=== PATIENT | male | born 2000 | race Caucasian/White ===

== ENCOUNTER → 2019-03-15 11:36 | Emergency (ER) | payer BC ==
[2019-03-15 11:43] VITALS: BP 142/94
--- NOTE | 2019-03-15 13:24 | ED ---
Skin Complaint - HPI Summary HPI Summary: Patient is a 18-year-old male presenting to the ED with acute onset right sided calf pain which occurred yesterday. He states he felt as though it was a spider bite, but did not notice anything. Today he developed a 2 cm in diameter ecchymotic area to the right calf without surrounding erythema, warmth or swelling. She endorses swelling, but this is not noted on physical exam. He denies any CP or SOB. He has never had anything like this before. He denies any recent rashes or tick bites. He denies blood thinners and takes no medications. He denies any recent travel and denies smoking history. - History of Current Complaint Chief Complaint: EDExtremityLower Time Seen by Provider: 03/15/19 11:52 Stated Complaint: SWELLING/REDNESS ON RIGHT LEG PER PT Hx Obtained From: Patient Onset/Duration: Started Hours Ago Skin Exposure Onset/Duration: Hours Ago Timing: Constant Onset Severity: Moderate Current Severity: Mild Pain Intensity: 7 Pain Scale Used: 0-10 Numeric Skin Location: Discrete - Right posterior calf Character: Swelling, Pain Aggravating Symptom(s): Touch, Other: - Dorsi flexion Alleviating Symptom(s): Nothing Associated Signs & Symptoms: Negative Related History: Insect Bite/Sting - Possible insect bite - Allergy/Home Medications Allergies/Adverse Reactions: Allergies Allergy/AdvReac Type Severity Reaction Status Date / Time No Known Allergies Allergy Verified 03/15/19 11:43 Home Medications: Home Medications NK [No Home Medications Reported] 03/15/19 [History Confirmed 03/15/19] PMH/Surg Hx/FS Hx/Imm Hx Previously Healthy: Yes Endocrine/Hematology History: Denies: Hx Diabetes Cardiovascular History: Denies: Hx Hypertension, Hx Pacemaker/ICD History: Denies: Hx Renal Disease Sensory History: Denies: Hx Hearing Aid Psychiatric History: Denies: Hx Panic Disorder - Immunization History Hx Pertussis Vaccination: No Immunizations Up to Date: Yes Infectious Disease History: No Infectious Disease History: Denies: Traveled Outside the [place] in Last 30 Days - Social History Occupation: Unemployed, Student Lives: Dormitory/Roommates Alcohol Use: Occasionally Hx Substance Use: No Substance Use Type: Reports: None Hx Tobacco Use: No Smoking Status (MU): Never Smoked Tobacco Review of Systems Constitutional: Negative Negative: Fever, Fatigue, Skin Diaphoresis Negative: Palpitations, Chest Pain Negative: Shortness Of Breath, Cough Genitourinary: Negative Positive: no symptoms reported, see HPI Positive: Myalgia - right calf pain Positive: Bruising - approximate 2 cm in diameter area of ecchymosis to the mid right calf All Other Systems Reviewed And Are Negative: Yes Physical Exam Triage Information Reviewed: Yes Vital Signs On Initial Exam: Initial Vitals Temp Pulse Resp BP Pulse Ox 97.4 F 83 16 142/94 98 03/15/19 11:40 03/15/19 11:40 03/15/19 11:40 03/15/19 11:40 03/15/19 11:40 Vital Signs Reviewed: Yes Appearance: Positive: Well-Appearing Skin: Positive: Warm, Skin Color Reflects Adequate Perfusion, Other - Ecchymosis measuring 2 cm to the right calf Head/Face: Positive: Normal Head/Face Inspection Eyes: Positive: Normal, KEVIN Neck: Positive: Supple, No Lymphadenopathy Respiratory/Lung Sounds: Positive: Clear to Auscultation, Breath Sounds Present Cardiovascular: Positive: RRR, Pulses are Symmetrical in both Upper and Lower Extremities Musculoskeletal: Positive: Normal, Strength/ROM Intact, Darshan Sign Right, Other - No edema noted. Negative: Edema Left, Edema Right Neurological: Positive: Speech Normal Psychiatric: Positive: Normal, Affect/Mood Appropriate Diagnostics - Vital Signs Vital Signs Temp Pulse Resp BP Pulse Ox 03/15/19 11:40 97.4 F 83 16 142/94 98 - Laboratory Lab Statement: Any lab studies that have been ordered have been reviewed, and results considered in the medical decision making process. Course/Dx - Course Course Of Treatment: This patient endorses right sided calf swelling which developed since yesterday. He states he had a sharp pain to the right posterior calf and immediately following the area became slightly ecchymotic and currently there is a approximate 2 cm ecchymotic area to the right calf without surrounding erythema, warmth, site of injection, drainage. The area appears to be a bruise. He denies trauma. Patient endorses pain worse with dorsiflexion, better with plantar flexion. He endorses swelling to the calf, however this is not noted on exam. DVT ultrasound obtained which is negative. Discussed with patient this may be a insect bite versus other etiology unknown. He will use heat to the area and ibuprofen. He is okay with this plan and discharged. He is given CD of US upon request. - Diagnoses Provider Diagnoses: Ecchymosis, Right calf pain Discharge - Sign-Out/Discharge Documenting (check all that apply): Patient Departure Patient Received Moderate/Deep Sedation with Procedure: No - Discharge Plan Condition: Stable Disposition: HOME Referrals: Robert Andrew DO [Primary Care Provider] - Additional Instructions: Ibuprofen 600mg three times daily as needed Moist heat to the area - Billing Disposition and Condition Condition: STABLE Disposition: Home Images - Images Full Body (No Head): 1 - 2 cm ecchymotic area resembling a bruise. No erythema, warmth or swelling to the calf noted. No area of injection or puncture wound.
== END | disposition home or self-care (01) ==
LOC: ED 11:36
DX: R58 Hemorrhage, not elsewhere classified (principal); M79.661 Pain in right lower leg; M79.89 Other specified soft tissue disorders
CPT/HCPCS: 99281